=== PATIENT | female | born 1970 | race American Indian/Alaskan Native ===

== ENCOUNTER 2017-05-08 17:41 | Emergency (ER) | payer MEDICAID ==
[2017-05-09 00:21] VITALS: BP 110/74
[2017-05-09] MEDS ORDERED: MOTRIN PO ONE (00:23)
[2017-05-09] MEDS ORDERED: LIDOCAINE VISCOUS 2% PO ONE (00:24)
[2017-05-09] MEDS ORDERED: ZITHROMAX PO ONE (00:26)
--- NOTE | 2017-05-09 00:30 | Emergency Department Report ---
ED ENT HPI - General Chief complaint: Upper Respiratory Infection Stated complaint: THROAT PAIN Time Seen by Provider: 05/08/17 23:32 Source: patient Mode of arrival: Ambulatory Limitations: No Limitations - History of Present Illness Initial comments: This is a 46-year-old female nontoxic, well nourished in appearance, no acute signs of distress presents to the ED with c/o of sore throat x1 week. Patient describes sore throat as swallowing razer blades. Patient denies any recent travels, long car rides, or recent hospital stays. Patient denies any cough, fever, chills, headache, nausea, vomiting, chest pain, shortness of breathe, numbness, tingling, abdominal pain, wheezing, or hemoptysis. He denies any calf pain, or calf tenderness. She states type I allergies to penicillin and sulfa. PAtient denies significant past medical history. PAtient stated has chronic recurrent tonsillits and had a tonsillectomy due to this. MD complaint: sore throat -: week(s) (1) Location: throat Severity: mild Severity scale (0 -10): 8 Consistency: constant Improves with: none Worsens with: swallowing Associated Symptoms: pain with swallowing, sore throat. denies: fever, cough, gum swelling, toothache, tinnitus, hearing loss, discharge from ear, rhinorrhea - Related Data Previous Rx's Medication Instructions Recorded Last Taken Type Azithromycin [Zithromax Z-TY] 250 mg PO DAILY #6 tablet 05/09/17 Unknown Rx Ibuprofen [Motrin] 600 mg PO Q8H PRN #30 tablet 05/09/17 Unknown Rx Nystas/Diphen/Xyl Visc/Mylanta 15 ml MM Q6H PRN 10 Days udc 05/09/17 Unknown Rx [Magic Mouthwash] Allergies Allergy/AdvReac Type Severity Reaction Status Date / Time Penicillins AdvReac Hives Verified 05/08/17 19:05 Sulfa (Sulfonamide AdvReac Hives Verified 05/08/17 19:05 Antibiotics) ED Dental HPI - General Chief complaint: Upper Respiratory Infection Stated complaint: THROAT PAIN Time Seen by Provider: 05/08/17 23:32 Source: patient Mode of arrival: Ambulatory Limitations: No Limitations - Related Data Previous Rx's Medication Instructions Recorded Last Taken Type Azithromycin [Zithromax Z-TY] 250 mg PO DAILY #6 tablet 05/09/17 Unknown Rx Ibuprofen [Motrin] 600 mg PO Q8H PRN #30 tablet 05/09/17 Unknown Rx Nystas/Diphen/Xyl Visc/Mylanta 15 ml MM Q6H PRN 10 Days udc 05/09/17 Unknown Rx [Magic Mouthwash] Allergies Allergy/AdvReac Type Severity Reaction Status Date / Time Penicillins AdvReac Hives Verified 05/08/17 19:05 Sulfa (Sulfonamide AdvReac Hives Verified 05/08/17 19:05 Antibiotics) ED Review of Systems ROS: Stated complaint: THROAT PAIN Other details as noted in HPI Constitutional: denies: chills, fever Eyes: denies: eye pain, eye discharge, vision change ENT: throat pain. denies: ear pain Respiratory: denies: cough, shortness of breath, wheezing Cardiovascular: denies: chest pain, palpitations Endocrine: no symptoms reported Gastrointestinal: denies: abdominal pain, nausea, diarrhea Genitourinary: denies: urgency, dysuria, discharge Musculoskeletal: denies: back pain, joint swelling, arthralgia Skin: denies: rash, lesions Neurological: denies: headache, weakness, paresthesias Psychiatric: denies: anxiety, depression Hematological/Lymphatic: denies: easy bleeding, easy bruising ED Past Medical Hx - Social History Smoking Status: Current Every Day Smoker Substance Use Type: None - Medications Home Medications: Home Medications Medication Instructions Recorded Confirmed Last Taken Type Azithromycin [Zithromax Z-TY] 250 mg PO DAILY #6 tablet 05/09/17 Unknown Rx Ibuprofen [Motrin] 600 mg PO Q8H PRN #30 tablet 05/09/17 Unknown Rx Nystas/Diphen/Xyl Visc/Mylanta 15 ml MM Q6H PRN 10 Days udc 05/09/17 Unknown Rx [Magic Mouthwash] ED Physical Exam - General Limitations: No Limitations General appearance: alert, in no apparent distress - Head Head exam: Present: atraumatic, normocephalic, normal inspection - Eye Eye exam: Present: normal appearance, PERRL, EOMI. Absent: scleral icterus, conjunctival injection, nystagmus, periorbital swelling, periorbital tenderness Pupils: Present: normal accommodation - ENT ENT exam: Present: mucous membranes moist, TM's normal bilaterally, normal external ear exam - Expanded ENT Exam Expanded Ear exam: Present: normal external inspection Mouth exam: Present: normal external inspection, tongue normal. Absent: drooling, trismus, muffled voice, tongue elevation, laceration Teeth exam: Present: normal inspection Throat exam: Positive: tonsillar erythema, other (No tonsils present due to tonsillectomy. Exdudate present in the oropharynx). Negative: tonsillomegaly, tonsillar exudate, R peritonsillar mass, L peritonsillar mass - Neck Neck exam: Present: normal inspection, full ROM. Absent: tenderness, meningismus, lymphadenopathy, thyromegaly - Respiratory Respiratory exam: Present: normal lung sounds bilaterally. Absent: respiratory distress, wheezes, rales, rhonchi, stridor, chest wall tenderness, accessory muscle use, decreased breath sounds, prolonged expiratory - Cardiovascular Cardiovascular Exam: Present: regular rate, normal rhythm, normal heart sounds. Absent: irregular rhythm, systolic murmur, diastolic murmur, rubs, gallop - GI/Abdominal GI/Abdominal exam: Present: soft, normal bowel sounds. Absent: distended, tenderness, guarding, rebound, rigid, diminished bowel sounds - Rectal Rectal exam: Present: deferred - Extremities Exam Extremities exam: Present: normal inspection, full ROM, normal capillary refill. Absent: tenderness, pedal edema, joint swelling, calf tenderness - Back Exam Back exam: Present: normal inspection, full ROM. Absent: tenderness, CVA tenderness (R), CVA tenderness (L), muscle spasm, paraspinal tenderness, vertebral tenderness, rash noted - Neurological Exam Neurological exam: Present: alert, oriented X3, CN II-XII intact, normal gait, reflexes normal - Psychiatric Psychiatric exam: Present: normal affect, normal mood - Skin Skin exam: Present: warm, dry, intact, normal color. Absent: rash ED Course Vital Signs 05/08/17 05/09/17 19:05 00:20 Temperature 99.6 F 98.7 F Pulse Rate 127 H 91 H Respiratory 24 20 Rate Blood Pressure 107/72 Blood Pressure 110/74 [Left] O2 Sat by Pulse 99 100 Oximetry - Reevaluation(s) Reevaluation #1: 05/09/17 00:32 Patient is speaking in full sentences with no signs of distress noted. ED Medical Decision Making - Medical Decision Making this is a 46-year-old female that presents with pharyngitis. Patient is stable and was examined by me. There is exudate in the oropharynx region and the tonsillar region. Patient received Motrin due to pain and viscous lidocaine. Patient stated that she will not have access to a pharmacy tonight nor probably tomorrow so I will treat patient with azithromycin and will discharge patient with a Z-Ty prescription. Vitals signs are stable at discharge with slight tacky may be related to pain. Patient is afebrile and is in no signs of any distress. Patient was instructed Follow-up with a primary care doctor in 3-5 days or if symptoms worsen and continue return to emergency room as soon as possible. At time time of discharge, the patient does not seem toxic or ill in appearance. No acute signs of distress noted. Patient agrees to discharge treatment plan of care. No further questions noted by the patient. Critical care attestation.: If time is entered above; I have spent that time in minutes in the direct care of this critically ill patient, excluding procedure time. ED Disposition Clinical Impression: Pharyngitis Qualifiers: Pharyngitis/tonsillitis etiology: unspecified etiology Qualified Code(s): J02.9 - Acute pharyngitis, unspecified Disposition: DC- TO HOME OR SELFCARE Is pt being admited?: No Does the pt Need Aspirin: No Condition: Stable Instructions: Pharyngitis (ED), Azithromycin (By mouth), Ibuprofen (By mouth) Additional Instructions: Follow-up with a primary care doctor in 3-5 days or if symptoms worsen and continue return to emergency room as soon as possible. If fever occurs, take Motrin as prescribed. Increase rest and hydration. Prescriptions: Azithromycin [Zithromax Z-TY] 250 mg PO DAILY #6 tablet Ibuprofen [Motrin] 600 mg PO Q8H PRN #30 tablet PRN Reason: Fever Nystas/Diphen/Xyl Visc/Mylanta [Magic Mouthwash] 15 ml MM Q6H PRN 10 Days udc PRN Reason: Sore Throat Referrals: PRIMARY CARE, [Primary Care Provider] - 3-5 Days REINA QUINTANILLA MD [Staff Physician] - 3-5 Days [facility] [Outside] - 3-5 Days [facility] [Outside] - 3-5 Days Forms: Work/School Release Form(ED)
== END 2017-05-09 00:41 | disposition home or self-care (01) ==
LOC: ED 17:41
DX: J02.9 Acute pharyngitis, unspecified (principal); F17.200 Nicotine dependence, unspecified, uncomplicated; Z88.2 Allergy status to sulfonamides; Z88.0 Allergy status to penicillin
CPT/HCPCS: 93005; 93010; 99282

== ENCOUNTER 2017-12-24 15:40 | Emergency (ER) | payer MEDICAID ==
[2017-12-24 16:06] VITALS: BP 109/77
--- NOTE | 2017-12-24 19:12 | Emergency Department Report ---
ED Upper Extremity Inj HPI - General Chief Complaint: Extremity Injury, Upper Stated Complaint: LFT ARM PAIN Time Seen by Provider: 12/24/17 18:04 Source: patient Mode of arrival: Ambulatory Limitations: No Limitations - Related Data Previous Rx's Medication Instructions Recorded Last Taken Type Azithromycin [Zithromax Z-TY] 250 mg PO DAILY #6 tablet 05/09/17 Unknown Rx Ibuprofen [Motrin] 600 mg PO Q8H PRN #30 tablet 05/09/17 Unknown Rx Nystas/Diphen/Xyl Visc/Mylanta 15 ml MM Q6H PRN 10 Days udc 05/09/17 Unknown Rx [Magic Mouthwash] Allergies Allergy/AdvReac Type Severity Reaction Status Date / Time Penicillins AdvReac Hives Verified 12/24/17 16:03 Sulfa (Sulfonamide AdvReac Hives Verified 12/24/17 16:03 Antibiotics) ED Review of Systems ROS: Stated complaint: LFT ARM PAIN Other details as noted in HPI ED Past Medical Hx - Past Medical History Hx Asthma: Yes Additional medical history: sarcoidosis - Surgical History Past Surgical History?: Yes Additional Surgical History: Hysterectomy - Social History Smoking Status: Current Every Day Smoker Substance Use Type: Alcohol - Medications Home Medications: Home Medications Medication Instructions Recorded Confirmed Last Taken Type Azithromycin [Zithromax Z-TY] 250 mg PO DAILY #6 tablet 05/09/17 Unknown Rx Ibuprofen [Motrin] 600 mg PO Q8H PRN #30 tablet 05/09/17 Unknown Rx Nystas/Diphen/Xyl Visc/Mylanta 15 ml MM Q6H PRN 10 Days udc 05/09/17 Unknown Rx [Magic Mouthwash] ED Course Vital Signs 12/24/17 16:03 Temperature 98.6 F Pulse Rate 91 H Respiratory 18 Rate Blood Pressure 109/77 O2 Sat by Pulse 100 Oximetry Critical care attestation.: If time is entered above; I have spent that time in minutes in the direct care of this critically ill patient, excluding procedure time. ED Disposition Condition: Stable Referrals: PRIMARY CARE, [Primary Care Provider] - 3-5 Days
--- NOTE | 2017-12-24 19:24 | Emergency Department Report ---
ED Upper Extremity Inj HPI - General Chief Complaint: Extremity Injury, Upper Stated Complaint: LFT ARM PAIN Time Seen by Provider: 12/24/17 18:04 Source: patient Mode of arrival: Ambulatory Limitations: No Limitations - History of Present Illness Initial Comments: This is a 47-year-old -[place] female who presents with left elbow pain for 1 week. Patient states symptoms increased yesterday. Patient denies past medical history. She is now stating pain is 8 out of 10 on pain scale with achy dull sensation. Patient states there is some swelling on left elbow cause than painful range of motion. She denies recent injuries, numbness or tingling , erythema, deformity, fever, and warmth to the area. Complaint: Injury to:: left, elbow Onset/Timin -: week(s) Other Extremity Injury: Elbow: Left Other Injuries: none Place: home Improves With: none Worsens With: movement of extremity Associated Symptoms: denies other symptoms - Related Data Previous Rx's Medication Instructions Recorded Last Taken Type Azithromycin [Zithromax Z-TY] 250 mg PO DAILY #6 tablet 05/09/17 Unknown Rx Ibuprofen [Motrin] 600 mg PO Q8H PRN #30 tablet 05/09/17 Unknown Rx Nystas/Diphen/Xyl Visc/Mylanta 15 ml MM Q6H PRN 10 Days udc 05/09/17 Unknown Rx [Magic Mouthwash] Ibuprofen [Motrin 800 MG tab] 800 mg PO Q8HR PRN #15 tablet 12/24/17 Unknown Rx Allergies Allergy/AdvReac Type Severity Reaction Status Date / Time Penicillins AdvReac Hives Verified 12/24/17 16:03 Sulfa (Sulfonamide AdvReac Hives Verified 12/24/17 16:03 Antibiotics) ED Review of Systems ROS: Stated complaint: LFT ARM PAIN Other details as noted in HPI Constitutional: denies: chills, fever Respiratory: denies: cough, shortness of breath, wheezing Cardiovascular: denies: chest pain, palpitations Musculoskeletal: arthralgia (left elbow pain). denies: back pain, joint swelling Skin: denies: rash, lesions Neurological: denies: headache, weakness, paresthesias Psychiatric: denies: anxiety, depression ED Past Medical Hx - Past Medical History Hx Asthma: Yes Additional medical history: sarcoidosis - Surgical History Past Surgical History?: Yes Additional Surgical History: Hysterectomy - Social History Smoking Status: Current Every Day Smoker Substance Use Type: Alcohol - Medications Home Medications: Home Medications Medication Instructions Recorded Confirmed Last Taken Type Azithromycin [Zithromax Z-TY] 250 mg PO DAILY #6 tablet 05/09/17 Unknown Rx Ibuprofen [Motrin] 600 mg PO Q8H PRN #30 tablet 05/09/17 Unknown Rx Nystas/Diphen/Xyl Visc/Mylanta 15 ml MM Q6H PRN 10 Days udc 05/09/17 Unknown Rx [Magic Mouthwash] Ibuprofen [Motrin 800 MG tab] 800 mg PO Q8HR PRN #15 tablet 12/24/17 Unknown Rx ED Physical Exam - General Limitations: No Limitations General appearance: alert, in no apparent distress - Respiratory Respiratory exam: Present: normal lung sounds bilaterally. Absent: respiratory distress - Cardiovascular Cardiovascular Exam: Present: regular rate, normal rhythm. Absent: systolic murmur, diastolic murmur, rubs, gallop - GI/Abdominal GI/Abdominal exam: Present: soft, normal bowel sounds - Expanded Upper Extremity Exam Left Shoulder Exam: Present: normal inspection, full ROM Upper Arm exam: Present: normal inspection, full ROM Elbow exam: Present: full ROM (painful range of motion), tenderness ( erythematous, tenderness over a olecranon joint), swelling, erythema, pain w/ pronation/supination. Absent: abrasion, laceration, ecchymosis, deformity, crepidus, dislocation, effusion, tenderness over radial head Forearm Wrist exam: Present: normal inspection, full ROM Hand Wrist exam: Present: normal inspection, full ROM Neuro motor exam: Present: wrist extension intact, thumb opposition intact, thumb IP flexion intact, thumb adduction intact, fingers 2-5 abduction intact Neurosensory exam: Present: radial nerve intact, ulnar nerve intact, median nerve intact Vascular: Present: normal capillary refill, radial pulse - Neurological Exam Neurological exam: Present: alert, oriented X3 - Psychiatric Psychiatric exam: Present: normal affect, normal mood - Skin Skin exam: Present: warm, dry, intact, normal color. Absent: rash ED Course Vital Signs 12/24/17 16:03 Temperature 98.6 F Pulse Rate 91 H Respiratory 18 Rate Blood Pressure 109/77 O2 Sat by Pulse 100 Oximetry ED Medical Decision Making - Radiology Data Radiology results: report reviewed, image reviewed FINAL REPORT EXAM: XR ELBOW 2V LT HISTORY: left elbow pain TECHNIQUE: Frontal and lateral views of left elbow. PRIORS: None. FINDINGS: No apparent fracture or dislocation. Joint spaces maintained. No abnormal fat pad sign. Soft tissues grossly unremarkable. IMPRESSION: 1. No acute osseous abnormality. - Medical Decision Making Patient was examined by myself in fast track. Vitals are normal and patient is in no acute distress. Obtained x-ray of left elbow and EKG. Each eighth EKG read by the attending and sinus rhythm. No acute findings on x-ray. Patient informed of results. Physical finances susceptible of tendinitis. Start ibuprofen for pain. Referrals to orthopedic surgery. Patient discharged home in stable condition. Follow up with PCP in 2-3 days. Critical care attestation.: If time is entered above; I have spent that time in minutes in the direct care of this critically ill patient, excluding procedure time. ED Disposition Clinical Impression: Tendonitis of elbow, left, Left elbow pain Disposition: TO HOME OR SELFCARE Is pt being admited?: No Does the pt Need Aspirin: No Condition: Stable Instructions: Tendinitis (ED) Additional Instructions: Rest Use ice or heat on affected area for 20 minutes and off for 2 hours. Take pain medication every 6 hours as needed for pain. Follow up with primary care provider in 2-3 days. Prescriptions: Ibuprofen [Motrin 800 MG tab] 800 mg PO Q8HR PRN #15 tablet PRN Reason: Pain , Severe (7-10) Referrals: [facility] [Provider Group] - 3-5 Days [facility], [facility] [Provider Group] - 3-5 Days SALEEM VILLANUEVA MD [Staff Physician] - 3-5 Days Time of Disposition: 21:05 Print Language: THAI
--- NOTE | 2017-12-24 20:45 | XRay Report ---
FINAL REPORT EXAM: XR ELBOW 2V LT HISTORY: left elbow pain TECHNIQUE: Frontal and lateral views of left elbow. PRIORS: None. FINDINGS: No apparent fracture or dislocation. Joint spaces maintained. No abnormal fat pad sign. Soft tissues grossly unremarkable. IMPRESSION: 1. No acute osseous abnormality.
[2017-12-24] MEDS ORDERED: MOTRIN PO ONE (20:59)
== END 2017-12-24 21:15 | disposition home or self-care (01) ==
LOC: ED 15:40
DX: M77.12 Lateral epicondylitis, left elbow (principal); J45.909 Unspecified asthma, uncomplicated; F17.200 Nicotine dependence, unspecified, uncomplicated; Z90.710 Acquired absence of both cervix and uterus; Z88.0 Allergy status to penicillin; Z88.2 Allergy status to sulfonamides
CPT/HCPCS: 93005; 93010; 99283

== ENCOUNTER 2018-02-15 00:55 | Emergency (ER) | payer MEDICAID ==
[2018-02-15] MEDS ORDERED: ATIVAN ONE (01:25)
[2018-02-15] MEDS ORDERED: KEPPRA 1,000 MG/NS 0.75% 100ML 1,000 MG/100 ML BAG IV ONE (01:25)
[2018-02-15 01:52] LABS: Basophils # (Auto) 0.1 K/mm3 (0.0-0.1); Basophils % (Auto) 1.2 % (0.0-1.8); Eosinophils # (Auto) 0.1 K/mm3 (0.0-0.4); Eosinophils % (Auto) 0.8 % (0.0-4.3); Hematocrit 38.9 % (30.3-42.9); Hemoglobin 13.1 gm/dl (10.1-14.3); Mean Corpuscular HGB Conc 34 % (30-34); Mean Corpuscular Hemoglobin 30 pg (28-32); Mean Corpuscular Volume 90 fl (79-97); Monocytes # (Auto) 0.3 K/mm3 (0.0-0.8); Monocytes % (Auto) 3.5 % (0.0-7.3); Platelet Count 244 K/mm3 (140-440); Red Blood Count 4.32 M/mm3 (3.65-5.03); Red Cell Distribution Width 14.6 % (13.2-15.2)
[2018-02-15] MEDS ORDERED: ATIVAN IV ONE (01:57)
[2018-02-15 02:02] LABS: INR 0.95 (0.87-1.13); Partial Thromboplastin Time 28.7 Sec. (24.2-36.6)
[2018-02-15 02:17] LABS: Alanine Aminotransferase 15 units/L (7-56); BUN/Creatinine Ratio 11; Blood Urea Nitrogen 9 mg/dL (7-17); Calcium 9.2 mg/dL (8.4-10.2); Hemolysis Index 9
[2018-02-15] MEDS ORDERED: NACL 0.9% 1000 ML 1,000 ML IV ONE ×2 (02:42→04:21)
--- NOTE | 2018-02-15 02:59 | Emergency Department Report ---
HPI - General Chief Complaint: Dyspnea/Respdistress Time Seen by Provider: 02/15/18 01:23 - HPI HPI: 47-year-old -[place] female presents to the emergency department via EMS from home with complaints of shortness of breath and seizures. The patient originally called the ambulance secondary to shortness of breath. She has a history of asthma and was using her albuterol and nebulizer treatments without much relief. 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 When she was picked up by EMS she had a witnessed seizure or seizure-like activity. The patient then had another seizure upon arrival to the emergency department. She does have a seizure history but has been a year or so since her last seizure and is not on any seizure medications. No recent travel or sick contacts at home. ED Past Medical Hx - Past Medical History Previous Medical History?: Yes Hx Seizures: Yes Hx Asthma: Yes Hx COPD: Yes Additional medical history: sarcoidosis - Surgical History Past Surgical History?: Yes Additional Surgical History: Hysterectomy - Social History Smoking Status: Light Tobacco Smoker Substance Use Type: None - Medications Home Medications: Home Medications Medication Instructions Recorded Confirmed Last Taken Type Azithromycin [Zithromax Z-TY] 250 mg PO DAILY #6 tablet 05/09/17 Unknown Rx Ibuprofen [Motrin] 600 mg PO Q8H PRN #30 tablet 05/09/17 Unknown Rx Nystas/Diphen/Xyl Visc/Mylanta 15 ml MM Q6H PRN 10 Days udc 05/09/17 Unknown Rx [Magic Mouthwash] Ibuprofen [Motrin 800 MG tab] 800 mg PO Q8HR PRN #15 tablet 12/24/17 Unknown Rx levETIRAcetam [Keppra] 500 mg PO BID #60 tablet 02/15/18 Unknown Rx predniSONE [Deltasone] 20 mg PO QDAY #4 tab 02/15/18 Unknown Rx ED Review of Systems ROS: Stated complaint: XANDER/SEIZURE Other details as noted in HPI Comment: All other systems reviewed and negative Constitutional: denies: chills, fever Eyes: denies: eye pain, eye discharge, vision change ENT: denies: ear pain, throat pain Respiratory: cough, shortness of breath, wheezing Cardiovascular: denies: chest pain, edema Gastrointestinal: denies: abdominal pain, nausea, diarrhea Genitourinary: denies: urgency, dysuria, discharge Musculoskeletal: denies: back pain, joint swelling, arthralgia Skin: denies: rash, lesions Neurological: other (seizure). denies: headache Physical Exam - Physical Exam Vital Signs: Vital Signs 02/15/18 01:10 Temperature 98.3 F Pulse Rate 122 H Blood Pressure 101/65 O2 Sat by Pulse 97 Oximetry Physical Exam: GENERAL: The patient is well-developed well-nourished. HEENT: Normocephalic. Atraumatic. Patient has moist mucous membranes. EYES: Extraocular motions are intact. Pupils are equal and reactive to light bilaterally. NECK: Supple. Trachea is midline. CHEST/LUNGS: Clear to auscultation. There is no respiratory distress noted. HEART/CARDIOVASCULAR: Regular. There is mild tachycardia. There is no gallop rub or murmur. ABDOMEN: Abdomen is soft, nontender. Patient has normal bowel sounds. There is no abdominal distention. SKIN: Skin is warm and dry. NEURO: The patient is awake, alert, and oriented. The patient is cooperative. The patient has no focal neurologic deficits. The patient has normal speech. MUSCULOSKELETAL: There is no tenderness or deformity. There is no limitation range of motion. There is no evidence of acute injury. ED Course Vital Signs 02/15/18 01:10 Temperature 98.3 F Pulse Rate 122 H Blood Pressure 101/65 O2 Sat by Pulse 97 Oximetry - Reevaluation(s) Reevaluation #1: 02/15/18 06:55 Shortly after the patient was evaluated by myself in the emergency department, she had a witnessed seizure or seizure-like activity. The heart rate went up to about 150 patient was having generalized convulsions. She was given 2 mg of Ativan and 1 g of Keppra Started. The seizure did appear real but the patient had a very short postictal period and was awake, alert and talking within only a few minutes of the seizure-like activity. ED Medical Decision Making - Lab Data Result diagrams: 02/15/18 01:35 02/15/18 01:35 - EKG Data -: EKG Interpreted by Me EKG shows normal: sinus rhythm, axis, intervals, QRS complexes, ST-T waves Rate: tachycardia (116 bpm) - EKG Data When compared to previous EKG there are: previous EKG unavailable Interpretation: other (sinus tachycardia) - Radiology Data Radiology results: image reviewed interpreted by me: Chest x-ray does not show any acute process including any obvious pneumonia, pneumothorax, focal consolidation or pleural effusion. - Medical Decision Making This patient originally came to the emergency department secondary to some recent shortness of breath. She has a history of asthma and is a tobacco smoker. The patient had a seizure when she was picked up by EMS. She was awake and alert. She got to the emergency Department but shortly after my evaluation she had another witnessed seizure. She was given Ativan and Keppra. The patient had a short postictal period and was then once again awake and alert. EKG did not show any signs of ST elevation IA, ischemia or dysrhythmia. A chest x-ray was done that did not show any obvious pneumonia, pleural effusions, pneumothorax, or focal consolidation. The patient's labs were unremarkable including negative troponin and negative d-dimer. No leukocytosis or electrolyte abnormalities. Patient did have some mild to moderate tachycardia and was given some IV fluid resuscitation with some improvement. Patient did not appear to have any signs of any respiratory distress. She had some mild expiratory wheezing. The patient was reevaluated multiple times over multiple hours and did not have any further seizures or seizure-like activity. For this reason, and since the patient does have a seizure history, I did not feel that CT imaging of the head was necessary at this time. Patient says she is feeling better. She has good follow-up with primary care and pulmonology. The patient will be started on Keppra and has been given a referral for a local neurologist. She'll be given a few days of steroids and instructed to follow- up with her lead sewage plant operator. She will return to the emergency department with any further seizure-like activity, worsening of her symptoms or any acute distress. She understands and agrees to the plan. - Differential Diagnosis epilepsy, asthma, pneumonia, PE Critical Care Time: No Critical care attestation.: If time is entered above; I have spent that time in minutes in the direct care of this critically ill patient, excluding procedure time. ED Disposition Clinical Impression: Seizure, Bronchospasm Dyspnea Qualifiers: Dyspnea type: shortness of breath Qualified Code(s): R06.02 - Shortness of breath Disposition: - TO HOME OR SELFCARE Is pt being admited?: No Condition: Stable Instructions: Asthma (ED), Dyspnea (ED), Bronchospasm (ED), Recurrent Seizures Adult (ED) Additional Instructions: Please follow-up with your primary care physician and lead sewage plant operator. Return to the emergency Department with any worsening of your symptoms or any acute distress. I am getting a referral for a local neurologist, Dr. Ortiz, to follow-up regarding your seizures. Prescriptions: levETIRAcetam [Keppra] 500 mg PO BID #60 tablet predniSONE [Deltasone] 20 mg PO QDAY #4 tab Referrals: PRIMARY CAREMD [Primary Care Provider] - 3-5 Days JACQUELYN ORTIZ MD [Staff Physician] - 2-3 Days Time of Disposition: 06:18
[2018-02-15] MEDS ORDERED: ZOFRAN IV ONE (04:33)
--- NOTE | 2018-02-15 05:05 | XRay Report ---
FINAL REPORT PROCEDURE: XR CHEST 1V AP TECHNIQUE: Chest radiograph anteroposterior view. CPT 45909 HISTORY: Dyspnea COMPARISON: No prior studies are available for comparison. FINDINGS: Heart: Normal. Mediastinum/Vessels: Normal. Lungs/Pleural space: There is suboptimal inspiration. There are fine reticular densities at the lung bases most likely due to atelectasis. Interstitial infiltrates or pulmonary edema not excluded. There is no pleural effusion or pneumothorax. Bony thorax: No acute osseous abnormality. Life support devices: None. IMPRESSION: The heart size is normal.. There is suboptimal inspiration. There are fine reticular densities at the lung bases most likely due to atelectasis. Interstitial infiltrates or pulmonary edema not excluded. There is no pleural effusion or pneumothorax.
[2018-02-15 06:24] LABS: Bacteria,Urine 1+ /HPF (Negative); Bilirubin,Urine NEG (Negative); Blood,Urine NEG (Negative); Color,Urine Straw (Yellow); Mucus,Urine FEW /HPF; Protein,Urine <15 mg/dL mg/dL (Negative); Urobilinogen,Urine < 2.0 mg/dL (<2.0)
[2018-02-15 06:31] LABS: Amphetamine Screen,Urine PRESUMPTIVE NEGATIVE; Benzodiazepines Screen,Urine PRESUMPTIVE NEGATIVE; Cannabinoid Screen,Urine PRESUMPTIVE NEGATIVE; Cocaine Screen,Urine PRESUMPTIVE NEGATIVE; Methadone Screen,Urine PRESUMPTIVE NEGATIVE; Opiate Screen,Urine PRESUMPTIVE NEGATIVE
[2018-02-15 07:06] VITALS: BP 119/71
== END 2018-02-15 07:04 | disposition home or self-care (01) ==
LOC: ED 00:55
DX: R56.9 Unspecified convulsions (principal); R06.02 Shortness of breath; J98.01 Acute bronchospasm; J44.9 Chronic obstructive pulmonary disease, unspecified; F17.210 Nicotine dependence, cigarettes, uncomplicated; Z90.710 Acquired absence of both cervix and uterus; Z88.0 Allergy status to penicillin; Z88.2 Allergy status to sulfonamides
CPT/HCPCS: 36415; 71045; 80053; 80307; 81001; 84484; 84703; 85025; 85379; 85610; 85730; 93005; 93010; 96374; 96375; 99285; J1953; J2060; J2405; J7030